=== PATIENT | male | born 1990 | race African-American/Black ===

== ENCOUNTER 2016-06-15 23:55 | Emergency (ER) | payer OTHER ==
[2016-06-16] MEDS ORDERED: NORCO, ANEXSIA 5/325MG TABLET (HYDROcodone/ACETAMINOPHEN) As Ordered ONE (02:27)
[2016-06-16] MEDS ORDERED: ONDANSETRON 4 MG ORAL DISINTEGRATING TAB (S0181) As Ordered ONE (02:28)
--- NOTE | 2016-06-16 03:09 | EDDOCDS ---
Physician Documentation [facility] Name: Stef Packer Age: 26 yrs Sex: Male : 1990 Arrival Date: 06/15/2016 Time: 23:55 Bed I5 / M5 Private MD: Other - Complete Info On Cds Disposition: 06/16/16 02:56 Discharged to Home/Self Care. Impression: Jaw pain - post dental extraction right pain with mild to moderate swelling. - Condition is Stable. - Discharge Instructions: Dental Extraction, Care After. - Prescriptions for Ibuprofen 800 mg Oral Tablet - take 1 tablet by ORAL route every 8 hours As needed take with food; 30 tablet. [place] 5- 325 mg Oral Tablet - take 1 tablet by ORAL route every 6 hours As needed MDD: 4 tabs; 12 tablet. ZOFRAN ODT 4 mg Oral - dissolve 1 tablet by ORAL route every 6-8 hours As needed do not chew, do not swallow whole; 10 tablet. - Medication Reconciliation, Local Pharmacy Hours form. - Follow up: Private Physician; When: Call to arrange an appointment; Reason: Recheck today's complaints, Continuance of care. Follow up: Emergency Department; When: As needed; Reason: Fever > 102F, Trouble breathing, Worsening of conditions. - Problem is new. - Symptoms are unchanged. Historical: - Allergies: PENICILLINS; - Home Meds: 1. Percocet 5-325 mg Oral tab 1 tab every 4 hours (Last dose: 06/15/2016 07:00) 2. Amoxicillin Oral Unknown every 12 hours 3. Aleve 220 mg Oral tab 1 tab every 8 hours (Last dose: 06/15/2016) 4. Tylenol 325 mg Oral tab 2 tabs every 4-6 hours (Last dose: 06/15/2016 22:00) - PMHx: Asthma; - PSHx: wisdom teeth with graft; - Social history: Smoking status: No barriers to communication noted, The patient speaks fluent Sami, Speaks appropriately for age. - Family history: Not pertinent. - : The pt / caregiver states he / she is not on anticoagulants. Home medication list is obtained from the patient. - Exposure Risk Screening:: None identified. Vital Signs: 06/15 23:57 BP 146 / 83; Pulse 80; Resp 18 S; Temp 97.9(O); Pulse Ox 100% on R/A; Weight 88.45 kg / gr2 195 lbs (R); Height 69 in. (175.26 cm) (R); Pain 8/10; 23:57 Body Mass Index 28.80 (88.45 kg, 175.26 cm) gr2 MDM: 06/16 02:11 Ondansetron ODT Oral Disintegrating Tablet 4 mg PO once ordered. ar2 02:11 HYDROcodone-acetaminophen 5 mg-325 mg 1 tabs PO once ordered. ar2 02:49 Financial registration complete. betty 03:01 [facility] Payment Agreement was scanned into [employer] and attached to record. gjb Administered Medications: 02:32 Drug: Ondansetron ODT 4 mg [ondansetron 4 mg disintegrating tablet (1 tabs)] Route: PO; af2 02:32 Drug: HYDROcodone-acetaminophen 1 tabs [hydrocodone 5 mg-acetaminophen 325 mg tablet (1 af2 tabs)] Route: PO; Signatures: Yan Griffith PA-C PA-C ar2 Sharon Velazco RN RN sls1 Melida Swanson RN RN af2 Melva Fierro The chart was reviewed and I authenticate all verbal orders and agree with the evaluation and treatment provided.Attachments: 03:01 [facility] Payment Agreement betty MTDD
--- NOTE | 2016-06-16 03:09 | EDDOCDS ---
Nurse's Notes [facility] Name: Stef Packer Age: 26 yrs Sex: Male : 1990 Arrival Date: 06/15/2016 Time: 23:55 Bed I5 / M5 Private MD: Other - Complete Info On Cds Diagnosis: Jaw pain-post dental extraction right pain with mild to moderate swelling Presentation: 06/16 00:10 Presenting complaint: Patient states: right side face pain since last week after having sls1 wisdom teeth removed, and graft removed, reports pain is increased and pills make him nausea. Adult Sepsis Screening: The patient does not have new or worsening altered mentation. Patient's respiratory rate is less than 22. Systolic blood pressure is greater than 100. Patient has a qSOFA score of 0- Negative Sepsis Screen. Suicide/Homicide risk assessment- the patient denies having any suicidal and/or homicidal ideations and does not present with any other emotional, behavioral or mental health complaints. Status: The patient is an active duty procurement services manager. Transition of care: patient was not received from another setting of care. 00:10 Acuity: ÁNGELA Level 4 sls1 00:10 Method Of Arrival: Walkin/Carried/Asstd sls1 Triage Assessment: 00:13 General: Appears in no apparent distress, Behavior is appropriate for age, cooperative. sls1 Pain: Location: mouth Pain currently is 10 out of 10 on a pain scale. Pt Declines HIV testing. Neurological: No deficits noted. EENT: Reports pain in mouth. GI: Reports nausea. Historical: - Allergies: PENICILLINS; - Home Meds: 1. Percocet 5-325 mg Oral tab 1 tab every 4 hours (Last dose: 06/15/2016 07:00) 2. Amoxicillin Oral Unknown every 12 hours 3. Aleve 220 mg Oral tab 1 tab every 8 hours (Last dose: 06/15/2016) 4. Tylenol 325 mg Oral tab 2 tabs every 4-6 hours (Last dose: 06/15/2016 22:00) - PMHx: Asthma; - PSHx: wisdom teeth with graft; - Social history: Smoking status: No barriers to communication noted, The patient speaks fluent Thai, Speaks appropriately for age. - Family history: Not pertinent. - : The pt / caregiver states he / she is not on anticoagulants. Home medication list is obtained from the patient. - Exposure Risk Screening:: None identified. Screenin:07 Screening information is obtained from the patient. Fall risk: No risks identified. af2 Assistance ADL's: requires no assistance with activities of daily living. Abuse/DV Screen: The patient / caregiver reports he/she is: not in a situation that causes fear, pain or injury. Nutritional screening: No deficits noted. Advance Directives: Currently, there is no health care proxy. home support is adequate. Assessment: 03:07 General: Appears in no apparent distress, comfortable, Behavior is appropriate for age, af2 cooperative. Awake, alert, oriented. Skin warm and dry. Moves all extremities. Respirations unlabored. Abdomen soft, non-tender. Abdomen soft, non-tender. No apparent distress. The patient / caregiver is instructed regarding the plan of care and ED course. Physical assessment to be completed by ARINA/PORTIA. Vital Signs: 06/15 23:57 BP 146 / 83; Pulse 80; Resp 18 S; Temp 97.9(O); Pulse Ox 100% on R/A; Weight 88.45 kg gr2 (R); Height 69 in. (175.26 cm) (R); Pain 8/10; 23:57 Body Mass Index 28.80 (88.45 kg, 175.26 cm) gr2 Vitals: 23:57 Log In Time: June 15, 2016 at 23:57. gr2 ED Course: 23:56 Patient visited by Magaly Roberson. gr2 23:56 Other - Complete Info On Cds is Private Physician. gr2 23:56 Patient moved to Waiting gr2 23:58 Patient visited by Magaly Roberson. gr2 23:58 Patient moved to Pre RCE gr2 06/16 00:11 Triage Initiated sls1 00:13 Patient moved to MTA Wait sls1 00:55 Patient moved to Waiting sohan 02:03 Patient moved to I5 / M5 af2 02:05 Yan Griffith PA-C is PHCP. ar2 02:05 Hieu Herzog DO is Attending Physician. ar2 02:05 Patient visited by Yan Griffith PA-C. ar2 03:01 [facility] Payment Agreement was scanned into [employer] and attached to record. gjb 03:07 No IV's were initiated during this patient's visit. No procedures done that require af2 assistance. 03:08 Patient has correct armband on for positive identification. af2 03:08 Patient name changed from Stef\S\Tysheen\S\Packer\S\ to Stef\S\Tysheem\S\Packer. EDMS Administered Medications: 02:32 Drug: Ondansetron ODT 4 mg [ondansetron 4 mg disintegrating tablet (1 tabs)] Route: PO; af2 02:32 Drug: HYDROcodone-acetaminophen 1 tabs [hydrocodone 5 mg-acetaminophen 325 mg tablet (1 af2 tabs)] Route: PO; Order Results: There are currently no results for this order. Outcome: 02:56 Discharge ordered by Provider. ar2 03:08 Discharge Assessment: Patient awake, alert and oriented x 3. No cognitive and/or af2 functional deficits noted. Patient verbalized understanding of disposition instructions. patient administered narcotics - no. The following High Risk Discharge criteria are identified: None. Discharged to home ambulatory. Condition: stable. Discharge instructions given to patient, Instructed on discharge instructions, follow up and referral plans. medication usage, no driving heavy equipment, no drinking with medication, Demonstrated understanding of instructions, medications, Pt was receptive of discharge instructions/ teaching. No special radiology studies were completed. Property :Personal belongings accompany Pt. 03:08 Patient left the ED. af2 Signatures: Dispatcher [employer] EDMS Anyi Negro RN RN jan Robertshaw, Aaron, PA-C PA-C ar2 Sharon Velazco RN RN [facility] Magaly Roberson gr2 Melida Swanson RN RN af2 Melva Fierro MTDD
--- NOTE | 2016-06-18 04:09 | EDDOCDS ---
Physician Documentation [facility] Name: Stef Packer Age: 26 yrs Sex: Male : 1990 Arrival Date: 06/15/2016 Time: 23:55 Bed I5 / M5 Private MD: Other - Complete Info On Cds Disposition: 06/16/16 02:56 Discharged to Home/Self Care. Impression: Jaw pain - post dental extraction right pain with mild to moderate swelling. - Condition is Stable. - Discharge Instructions: Dental Extraction, Care After. - Prescriptions for Ibuprofen 800 mg Oral Tablet - take 1 tablet by ORAL route every 8 hours As needed take with food; 30 tablet. [place] 5- 325 mg Oral Tablet - take 1 tablet by ORAL route every 6 hours As needed MDD: 4 tabs; 12 tablet. ZOFRAN ODT 4 mg Oral - dissolve 1 tablet by ORAL route every 6-8 hours As needed do not chew, do not swallow whole; 10 tablet. - Medication Reconciliation, Local Pharmacy Hours form. - Follow up: Private Physician; When: Call to arrange an appointment; Reason: Recheck today's complaints, Continuance of care. Follow up: Emergency Department; When: As needed; Reason: Fever > 102F, Trouble breathing, Worsening of conditions. - Problem is new. - Symptoms are unchanged. Historical: - Allergies: PENICILLINS; - Home Meds: 1. Percocet 5-325 mg Oral tab 1 tab every 4 hours (Last dose: 06/15/2016 07:00) 2. Amoxicillin Oral Unknown every 12 hours 3. Aleve 220 mg Oral tab 1 tab every 8 hours (Last dose: 06/15/2016) 4. Tylenol 325 mg Oral tab 2 tabs every 4-6 hours (Last dose: 06/15/2016 22:00) - PMHx: Asthma; - PSHx: wisdom teeth with graft; - Social history: Smoking status: No barriers to communication noted, The patient speaks fluent Bulgarian, Speaks appropriately for age. - Family history: Not pertinent. - : The pt / caregiver states he / she is not on anticoagulants. Home medication list is obtained from the patient. - Exposure Risk Screening:: None identified. Vital Signs: 06/15 23:57 BP 146 / 83; Pulse 80; Resp 18 S; Temp 97.9(O); Pulse Ox 100% on R/A; Weight 88.45 kg / gr2 195 lbs (R); Height 69 in. (175.26 cm) (R); Pain 8/10; 23:57 Body Mass Index 28.80 (88.45 kg, 175.26 cm) gr2 MDM: 06/16 02:11 Ondansetron ODT Oral Disintegrating Tablet 4 mg PO once ordered. ar2 02:11 HYDROcodone-acetaminophen 5 mg-325 mg 1 tabs PO once ordered. ar2 02:49 Financial registration complete. gjb 03:01 [facility] Payment Agreement was scanned into [employer] and attached to record. gjb 11:52 T-Sheet-- Draft Copy was scanned into [employer] and attached to record. gb Administered Medications: 02:32 Drug: Ondansetron ODT 4 mg [ondansetron 4 mg disintegrating tablet (1 tabs)] Route: PO; af2 02:32 Drug: HYDROcodone-acetaminophen 1 tabs [hydrocodone 5 mg-acetaminophen 325 mg tablet (1 af2 tabs)] Route: PO; Signatures: Loren Chen, Reg Reg gb Yan Griffith PA-C PA-C ar2 Sharon Velazco RN RN sls1 Melida Swanson RN RN af2 Melva Fierro gjb The chart was reviewed and I authenticate all verbal orders and agree with the evaluation and treatment provided.Attachments: 03:01 [facility] Payment Agreement b 11:52 T-Sheet-- Draft Copy gb Chart Complete MTDD
--- NOTE | 2016-06-18 04:09 | EDDOCDS ---
Nurse's Notes [facility] Name: Stef Packer Age: 26 yrs Sex: Male : 1990 Arrival Date: 06/15/2016 Time: 23:55 Bed I5 / M5 Private MD: Other - Complete Info On Cds Diagnosis: Jaw pain-post dental extraction right pain with mild to moderate swelling Presentation: 06/16 00:10 Presenting complaint: Patient states: right side face pain since last week after having sls1 wisdom teeth removed, and graft removed, reports pain is increased and pills make him nausea. Adult Sepsis Screening: The patient does not have new or worsening altered mentation. Patient's respiratory rate is less than 22. Systolic blood pressure is greater than 100. Patient has a qSOFA score of 0- Negative Sepsis Screen. Suicide/Homicide risk assessment- the patient denies having any suicidal and/or homicidal ideations and does not present with any other emotional, behavioral or mental health complaints. Status: The patient is an active duty customer service leader. Transition of care: patient was not received from another setting of care. 00:10 Acuity: ÁNGELA Level 4 sls1 00:10 Method Of Arrival: Walkin/Carried/Asstd sls1 Triage Assessment: 00:13 General: Appears in no apparent distress, Behavior is appropriate for age, cooperative. sls1 Pain: Location: mouth Pain currently is 10 out of 10 on a pain scale. Pt Declines HIV testing. Neurological: No deficits noted. EENT: Reports pain in mouth. GI: Reports nausea. Historical: - Allergies: PENICILLINS; - Home Meds: 1. Percocet 5-325 mg Oral tab 1 tab every 4 hours (Last dose: 06/15/2016 07:00) 2. Amoxicillin Oral Unknown every 12 hours 3. Aleve 220 mg Oral tab 1 tab every 8 hours (Last dose: 06/15/2016) 4. Tylenol 325 mg Oral tab 2 tabs every 4-6 hours (Last dose: 06/15/2016 22:00) - PMHx: Asthma; - PSHx: wisdom teeth with graft; - Social history: Smoking status: No barriers to communication noted, The patient speaks fluent German, Speaks appropriately for age. - Family history: Not pertinent. - : The pt / caregiver states he / she is not on anticoagulants. Home medication list is obtained from the patient. - Exposure Risk Screening:: None identified. Screenin:07 Screening information is obtained from the patient. Fall risk: No risks identified. af2 Assistance ADL's: requires no assistance with activities of daily living. Abuse/DV Screen: The patient / caregiver reports he/she is: not in a situation that causes fear, pain or injury. Nutritional screening: No deficits noted. Advance Directives: Currently, there is no health care proxy. home support is adequate. Assessment: 03:07 General: Appears in no apparent distress, comfortable, Behavior is appropriate for age, af2 cooperative. Awake, alert, oriented. Skin warm and dry. Moves all extremities. Respirations unlabored. Abdomen soft, non-tender. Abdomen soft, non-tender. No apparent distress. The patient / caregiver is instructed regarding the plan of care and ED course. Physical assessment to be completed by ARINA/PORTIA. Vital Signs: 06/15 23:57 BP 146 / 83; Pulse 80; Resp 18 S; Temp 97.9(O); Pulse Ox 100% on R/A; Weight 88.45 kg gr2 (R); Height 69 in. (175.26 cm) (R); Pain 8/10; 23:57 Body Mass Index 28.80 (88.45 kg, 175.26 cm) gr2 Vitals: 23:57 Log In Time: June 15, 2016 at 23:57. gr2 ED Course: 23:56 Patient visited by Magaly Roberson. gr2 23:56 Other - Complete Info On Cds is Private Physician. gr2 23:56 Patient moved to Waiting gr2 23:58 Patient visited by Magaly Roberson. gr2 23:58 Patient moved to Pre RCE gr2 06/16 00:11 Triage Initiated sls1 00:13 Patient moved to MTA Wait sls1 00:55 Patient moved to Waiting sohan 02:03 Patient moved to I5 / M5 af2 02:05 Yan Griffith PA-C is PHCP. ar2 02:05 Hieu Herzog DO is Attending Physician. ar2 02:05 Patient visited by Yan Griffith PA-C. ar2 03:01 [facility] Payment Agreement was scanned into [employer] and attached to record. gjb 03:07 No IV's were initiated during this patient's visit. No procedures done that require af2 assistance. 03:08 Patient has correct armband on for positive identification. af2 03:08 Patient name changed from Stef\S\Tysheen\S\Packer\S\ to Stef\S\Tysheem\S\Packer. EDMS 11:52 T-Sheet-- Draft Copy was scanned into [employer] and attached to record. gb Administered Medications: 02:32 Drug: Ondansetron ODT 4 mg [ondansetron 4 mg disintegrating tablet (1 tabs)] Route: PO; af2 02:32 Drug: HYDROcodone-acetaminophen 1 tabs [hydrocodone 5 mg-acetaminophen 325 mg tablet (1 af2 tabs)] Route: PO; Order Results: There are currently no results for this order. Outcome: 02:56 Discharge ordered by Provider. ar2 03:08 Discharge Assessment: Patient awake, alert and oriented x 3. No cognitive and/or af2 functional deficits noted. Patient verbalized understanding of disposition instructions. patient administered narcotics - no. The following High Risk Discharge criteria are identified: None. Discharged to home ambulatory. Condition: stable. Discharge instructions given to patient, Instructed on discharge instructions, follow up and referral plans. medication usage, no driving heavy equipment, no drinking with medication, Demonstrated understanding of instructions, medications, Pt was receptive of discharge instructions/ teaching. No special radiology studies were completed. Property :Personal belongings accompany Pt. 03:08 Patient left the ED. af2 Signatures: [facility]patcher [facility] Anyi Negro RN RN jan Barnhardt, Gloria, Reg Reg Yan Kendall PA-C PA-C ar2 Sharon Velazco RN RN sls1 Magaly Roberson gr2 Melida Swanson RN RN af2 Melva Fierro Chart Complete MTDD
--- NOTE | 2016-06-18 04:09 | EDDOCDS ---
Physician Documentation [facility] Name: Stef Packer Age: 26 yrs Sex: Male : 1990 Arrival Date: 06/15/2016 Time: 23:55 Bed I5 / M5 Private MD: Other - Complete Info On Cds Disposition: 06/16/16 02:56 Discharged to Home/Self Care. Impression: Jaw pain - post dental extraction right pain with mild to moderate swelling. - Condition is Stable. - Discharge Instructions: Dental Extraction, Care After. - Prescriptions for Ibuprofen 800 mg Oral Tablet - take 1 tablet by ORAL route every 8 hours As needed take with food; 30 tablet. [place] 5- 325 mg Oral Tablet - take 1 tablet by ORAL route every 6 hours As needed MDD: 4 tabs; 12 tablet. ZOFRAN ODT 4 mg Oral - dissolve 1 tablet by ORAL route every 6-8 hours As needed do not chew, do not swallow whole; 10 tablet. - Medication Reconciliation, Local Pharmacy Hours form. - Follow up: Private Physician; When: Call to arrange an appointment; Reason: Recheck today's complaints, Continuance of care. Follow up: Emergency Department; When: As needed; Reason: Fever > 102F, Trouble breathing, Worsening of conditions. - Problem is new. - Symptoms are unchanged. Historical: - Allergies: PENICILLINS; - Home Meds: 1. Percocet 5-325 mg Oral tab 1 tab every 4 hours (Last dose: 06/15/2016 07:00) 2. Amoxicillin Oral Unknown every 12 hours 3. Aleve 220 mg Oral tab 1 tab every 8 hours (Last dose: 06/15/2016) 4. Tylenol 325 mg Oral tab 2 tabs every 4-6 hours (Last dose: 06/15/2016 22:00) - PMHx: Asthma; - PSHx: wisdom teeth with graft; - Social history: Smoking status: No barriers to communication noted, The patient speaks fluent Wolof, Speaks appropriately for age. - Family history: Not pertinent. - : The pt / caregiver states he / she is not on anticoagulants. Home medication list is obtained from the patient. - Exposure Risk Screening:: None identified. Vital Signs: 06/15 23:57 BP 146 / 83; Pulse 80; Resp 18 S; Temp 97.9(O); Pulse Ox 100% on R/A; Weight 88.45 kg / gr2 195 lbs (R); Height 69 in. (175.26 cm) (R); Pain 8/10; 23:57 Body Mass Index 28.80 (88.45 kg, 175.26 cm) gr2 MDM: 06/16 02:11 Ondansetron ODT Oral Disintegrating Tablet 4 mg PO once ordered. ar2 02:11 HYDROcodone-acetaminophen 5 mg-325 mg 1 tabs PO once ordered. ar2 02:49 Financial registration complete. gjb 03:01 [facility] Payment Agreement was scanned into [employer] and attached to record. gjb 11:52 T-Sheet-- Draft Copy was scanned into [employer] and attached to record. gb Administered Medications: 02:32 Drug: Ondansetron ODT 4 mg [ondansetron 4 mg disintegrating tablet (1 tabs)] Route: PO; af2 02:32 Drug: HYDROcodone-acetaminophen 1 tabs [hydrocodone 5 mg-acetaminophen 325 mg tablet (1 af2 tabs)] Route: PO; Signatures: Loren Chen, Reg Reg gb Yan Griffith PA-C PA-C ar2 Sharon Velazco RN RN sls1 Melida Swanson RN RN af2 Melva Fierro gjb The chart was reviewed and I authenticate all verbal orders and agree with the evaluation and treatment provided.Attachments: 03:01 [facility] Payment Agreement b 11:52 T-Sheet-- Draft Copy gb Chart Complete MTDD
== END 2016-06-16 03:08 | disposition home or self-care (01) ==
LOC: M ED 23:55
DX: G89.18 Other acute postprocedural pain (principal); R68.84 Jaw pain; K08.409 Partial loss of teeth, unspecified cause, unspecified class; J45.909 Unspecified asthma, uncomplicated; Z79.891 Long term (current) use of opiate analgesic; Z79.2 Long term (current) use of antibiotics; Z88.0 Allergy status to penicillin

== ENCOUNTER 2016-06-26 06:36 | Emergency (ER) | payer OTHER ==
[2016-06-26] MEDS ORDERED: ALBUTEROL SULFATE 2.5 MG/0.5 ML INH NEB SOLN INH SCH (06:45)
[2016-06-26] MEDS ORDERED: ALBU20IN (06:49)
[2016-06-26] MEDS ORDERED: RACEPINEPHrine 2.25 % UD INHA As Ordered ONE (06:50)
[2016-06-26] MEDS ORDERED: RACEPINEPHrine 2.25 % UD INHA NEB ONE (07:00)
[2016-06-26] MEDS ORDERED: ACETAMINOPHEN SUSP 160 MG/5 ML UDC PO ONE (07:00)
[2016-06-26] MEDS ORDERED: dexameTHASONE 1 MG/10 ML ORAL SOL PO ONE (07:15)
[2016-06-26] MEDS ORDERED: dexameTHASONE 4 MG/ML 1ML VIAL (J1100) PO ONE (07:30)
[2016-06-26 09:13] VITALS: BP 111/66
== END 2016-06-26 09:30 | disposition home or self-care (01) ==
LOC: M ED 06:36
DX: Z53.29 Procedure and treatment not carried out because of patient's decision for other reasons (principal)